=== PATIENT | female | born 1940 | race Caucasian/White ===

== ENCOUNTER 2016-03-20 09:56 | Emergency (ER) | payer OTHER, MEDICAID ==
[2016-03-20 10:11] VITALS: RESP 18
--- NOTE | 2016-03-20 10:18 | EDPHY ---
HPI/HX/ROS/PE/MDM Narrative: CHIEF COMPLAINT: Out of insulin HPI: The patient is a newly homeless 75 y/o female, with a history of diabetes, arriving here from the homeless snf in [place] requesting insulin. Her is also in the ED requesting needles for injecting insulin. She reports the rent went up on their rent 2 weeks ago and they were unable to afford it so they put all their stuff in storage including medications and went to the homeless snf [facility]. The homeless snf does not allow them to stay there during the day so she came to [place] because she thought the snf would allow elderly people to stay in the snf during the day. She last used insulin 2 weeks ago. She denies acute medical complaitns. REVIEW OF SYSTEMS: Aside from elements discussed in the HPI, a comprehensive 10-point review of systems was reviewed and is negative. PMH: Diabetes SOCIAL HISTORY: . Homeless. PHYSICAL EXAM: General:Patient is alert, in no acute distress. ENT:Eyes are normal to inspection. ENT inspection normal. Neck: Normal inspection. Full range of motion. Respiratory:No respiratory distress. Breath sounds normal bilaterally. Cardiovascular: Regular rate and rhythm. Strong peripheral pulses. Normal cap refill. Abdomen:The abdomen is nontender to palpation. There are no peritoneal signs. There are normal bowel sounds. Back: Normal to inspection. No tenderness to palpation. Skin: Normal color. No rash. Warm and dry. Extremities: Normal appearance. Full range of motion. Neuro: Oriented x3. Normal motor function. Normal sensory function. ED Course: ISTAT ordered to check BGL. Case management will be involved. ISTAT BGL is 495. IV established. Labs drawn including CBC, CHEM, b- hydroxybutyrate. 10 units insulin and 1L IV NS administered. BGL is 502 on CHEM. 13:11: BGL is now 150. Case management has discussed outpatient care with the patient. She will be discharged with script for insulin and follow up resources. She is comfortable with this plan. MDM: This patient with known diabetes presents with hyperglycemia without evidence of diabetic ketoacidosis either clinically or on lab panel. Her main request appears to be desire for housing, but she also initially requested insulin. After extensive involvement with the classification case manager, the patient states that she has insulin in a storage unit that is locked and she apparently now has the ability to access that storage unit which is in [place]. I offered to write her prescription for insulin, but she declines this. There does not appear to be an acute medical issue. The patient was treated with IV fluids and 10 units of regular insulin which has brought her blood sugar down to and essentially normal range. She is eating without difficulty. I think she is safe for discharge home. - Data Points Laboratory Results: Laboratory Results 03/20/16 10:20 03/20/16 10:20 03/20/16 03/20/16 03/20/16 13:02 10:31 10:20 WBC 6.83 10^3/uL (3.80-9.50) RBC 3.99 L 10^6/uL (4.18-5.33) Hgb 13.4 g/dL (12.6-16.3) POC Hgb 14.3 gm/dL (12.3-15.9) Hct 37.5 L % (38.0-47.0) POC Hct 42 % (35.5-47.5) MCV 94.0 fL (81.5-99.8) MCH 33.6 pg (27.9-34.1) MCHC 35.7 g/dL (32.4-36.7) RDW 11.9 % (11.5-15.2) Plt Count 213 10^3/uL (150-400) MPV 10.9 fL (8.7-11.7) Neut % (Auto) 81.3 H % (39.3-74.2) Lymph % (Auto) 13.0 L % (15.0-45.0) [place] % (Auto) 3.8 L % (4.5-13.0) Eos % (Auto) 0.9 % (0.6-7.6) Baso % (Auto) 0.6 % (0.3-1.7) Nucleat RBC Rel Count 0.0 % (0.0-0.2) Absolute Neuts (auto) 5.55 10^3/uL (1.70-6.50) Absolute Lymphs (auto) 0.89 L 10^3/uL (1.00-3.00) Absolute Monos (auto) 0.26 L 10^3/uL (0.30-0.80) Absolute Eos (auto) 0.06 10^3/uL (0.03-0.40) Absolute Basos (auto) 0.04 10^3/uL (0.02-0.10) Absolute Nucleated RBC 0.00 10^3/uL (0-0.01) Immature Gran % 0.4 % (0.0-1.1) Immature Gran # 0.03 10^3/uL (0.00-0.10) POC Sodium 138 mEq/L (134-144) Sodium 138 mEq/L (134-144) POC Potassium 4.1 mEq/L (3.3-5.0) Potassium 4.4 mEq/L (3.5-5.2) POC Chloride 99 mEq/L (96-108) Chloride 102 mEq/L (97-110) Carbon Dioxide 26 mEq/l (22-31) Anion Gap 10 mEq/L (8-16) POC BUN 15 mg/dL (7-23) BUN 15 mg/dL (7-23) Creatinine 0.6 mg/dL (0.6-1.0) POC Creatinine 0.6 mg/dL (0.6-1.2) Estimated GFR > 60 Glucose 502 H* mg/dL (70-100) POC Glucose 150 H mg/dL 495 H mg/dL (70-100) (70-100) Calcium 8.9 mg/dL (8.5-10.4) Beta-Hydroxybutyrate 0.15 mmol/L (0.02-0.27) Medications Given: Discontinued Medications Sodium Chloride (Ns) 1,000 mls @ 0 mls/hr IV ONCE ONE PRN Reason: Wide Open Stop: 03/20/16 10:45 Last Admin: 03/20/16 11:14 Dose: 1,000 mls Insulin Human Regular (Humulin R) 10 unit IVP EDNOW ONE Stop: 03/20/16 10:45 Last Admin: 03/20/16 11:11 Dose: 10 i.unit Point of Care Test Results: 03/20/16 03/20/16 10:31 13:02 POC Sodium 138 POC Potassium 4.1 POC Chloride 99 POC BUN 15 POC Creatinine 0.6 POC Glucose 495 H 150 H General Time Seen by Provider: 03/20/16 10:15 Initial Vital Signs: Initial Vital Signs Temperature (C) 36.8 C 03/20/16 10:06 Heart Rate 90 03/20/16 10:06 Respiratory Rate 18 03/20/16 10:06 Blood Pressure 143/89 H 03/20/16 10:06 O2 Sat (%) 91 L 03/20/16 10:06 O2 Delivery Mode Room Air Allergies/Adverse Reactions: No Known Allergies Allergy (Unverified 03/20/16 10:11) Home Medications: Medication Instructions Recorded HUMULIN R 03/20/16 Departure - Departure Disposition: Home, Routine, Self-Care Clinical Impression: Hyperglycemia, Medication refill Condition: Good Instructions: Diabetic Hyperglycemia (ED), Medicine Refill (ED) Additional Instructions: 1. Take your insulin as prescribed and check your blood sugar regularly. 2. Follow up with a primary care provider. You've been referred to [facility]. 3. Return to the ED for worsening of condition. Referrals: NONE *PRIMARY CARE P,. [Primary Care Provider] - As per Instructions [facility] [Outside] - As per Instructions Report Scribed for: Sammy Sanches Report Scribed by: Alison Aranda Date of Report: 03/20/16 Time of Report: 10:18 Physician Review and Approval Statement: Portions of this note were transcribed by an ED scribe. I personally performed the history, physical exam, and medical decision making; and confirm the accuracy of the information in the transcribed note.
[2016-03-20] MEDS ORDERED: NS 1,000 ML IV ONE (10:44)
[2016-03-20] MEDS ORDERED: INSULIN REGULAR HUMAN 100 UNIT/ML IVP ONE (10:44)
[2016-03-20 10:53] LABS: % IMMATURE GRANULYOCYTES 0.4 % (0.0-1.1); ABSOLUTE IMMATURE GRANULOCYTES 0.03 10^3/uL (0.00-0.10); ADD DIFF? NO; ADD MORPH? NO; ADD SCAN? NO; ATYPICAL LYMPHOCYTE FLAG 30 (0-99); FRAGMENT RBC FLAG 0 (0-99); HEMATOCRIT 37.5 % (38.0-47.0); HEMOGLOBIN 13.4 g/dL (12.6-16.3); LEFT SHIFT FLG 0 (0-99); LIPEMIA HEMOLYSIS FLAG 90 (0-99); MEAN CELL HEMOGLOBIN 33.6 pg (27.9-34.1); MEAN CELL HEMOGLOBIN CONCENTR. 35.7 g/dL (32.4-36.7); MEAN PLATELET VOLUME 10.9 fL (8.7-11.7); PLATELET CLUMPS FLAG 10 (0-99); PLATELET COUNT 213 10^3/uL (150-400); RED BLOOD CELL COUNT 3.99 10^6/uL (4.18-5.33); RED CELL DISTRIBUTION WIDTH 11.9 % (11.5-15.2)
[2016-03-20 11:00] LABS: ANION GAP 10 mEq/L (8-16); CALCIUM 8.9 mg/dL (8.5-10.4); CARBON DIOXIDE 26 mEq/l (22-31); CHLORIDE 102 mEq/L (97-110); CREATININE 0.6 mg/dL (0.6-1.0); GLOMERULAR FILTRATION RATE > 60; POTASSIUM 4.4 mEq/L (3.5-5.2); SODIUM 138 mEq/L (134-144)
[2016-03-20 11:03] LABS: GLUCOSE 502 mg/dL (70-100)
[2016-03-20 11:35] LABS: B-HYDROXYBUTYRATE 0.15 mmol/L (0.02-0.27)
[2016-03-20 12:12] VITALS: O2SAT 96
[2016-03-20 14:39] VITALS: BP 171/98; PULSE 89; TEMP 98.4
== END 2016-03-20 14:36 | disposition home or self-care (01) ==
DX: Z76.0 Encounter for issue of repeat prescription (principal); E11.65 Type 2 diabetes mellitus with hyperglycemia; Z79.4 Long term (current) use of insulin
CPT/HCPCS: 96361; 96374; 99284; J1815; 82947-QW